=== PATIENT | female | born 2000 | race Caucasian/White ===

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

== ENCOUNTER → 2019-02-01 | Outpatient (CLI) | payer BC, SELFPAY ==
[~2019-02-01] MED LIST: IBUP200T45 PO
--- NOTE | 2019-02-01 19:41 | REP ---
HISTORY: Palpable mass. COMPARISON: No prior ultrasound examinations for comparison. An ultrasound cannot be compared to an MRI. Not only are they of different modalities, but they have markedly different sensitivities and specificities. The prior MRI showed an enhancing mass in the right thigh. All interested parties should review that report and those images if necessary. Today's ultrasound exam shows a mixed echo vascular structure seemingly in the vastus lateralis, difficult to ascertain by ultrasound and having color Doppler imaging showing multiple vascular channels. This was not measured by the technologist and the images provided do not reflect its definitive borders. IMPRESSION: Limited examination with vascular structures as described above. Electronically Signed by Miguel Childs DO 02/02/2019 10:54 A
== END ==
LOC: M RAD 14:34
PROVIDERS: ATTEND Registered Nurse
DX: D18.01 Hemangioma of skin and subcutaneous tissue (principal)

== ENCOUNTER → 2025-04-17 | Outpatient (REF) | payer OTHER, SELFPAY ==
[~2025-04-17] MED LIST changes: -IBUP200T45 PO; +IBUP200T46 PO
[2025-04-17 17:40] LABS: BASO # 0.0 10^3/uL (0.0-0.2); BASO % 0.5 % (0.0-1.0); EOS # 0.2 10^3/uL (0.0-0.5); EOS % 2.8 % (0.0-3.0); LYMPH # 2.1 10^3/uL (1.5-5.0); LYMPH % 23.5 % (24.0-44.0); MONO # 0.6 10^3/uL (0.0-0.8); MONO % 7.0 % (2.0-8.0); NEUTROPHILS # 5.8 10^3/uL (1.5-8.5); NEUTROPHILS % 65.9 % (36.0-66.0); PLATELET COUNT, AUTOMATED 426 10^3/uL (150-450)
[2025-04-17 17:53] LABS: ESTIMATED AVERAGE GLUCOSE 91.0 MG/DL (60-110)
[2025-04-17 18:02] LABS: CREATININE, URINE 85.7 MG/DL; MALB URINE SIEMENS 9.0 MG/L; MAU/CREAT RATIO 10.5 MCG/MG (0.0-30.0)
[2025-04-17 18:09] LABS: ALT/SGPT 26 U/L (7.0-40); AST/SGOT 18 U/L (<34); CALCIUM LEVEL 9.3 MG/DL (8.5-10.1); CARBON DIOXIDE LEVEL 25 MMOL/L (20-31); CHLORIDE LEVEL 109 MMOL/L (98-107); CHOLESTEROL LEVEL 188 MG/DL (<200); CHOLESTEROL RISK RATIO 4.63 (<5); CREATININE FOR GFR 0.85 MG/DL (0.55-1.30); GLOMERULAR FILTRATION RATE > 90.0 (>60); LDL CHOLESTEROL 124.2 MG/DL (<100); NON-HDL-C 147.4 MG/DL; POTASSIUM SERUM 4.5 MMOL/L (3.5-5.1); SODIUM LEVEL 141 MMOL/L (136-145); TRIGLYCERIDES LEVEL 116 MG/DL (<150)
[2025-04-17 18:32] LABS: HIV 1&2 SCREEN NEGATIVE (NEGATIVE)
[2025-04-17 18:40] LABS: HEPATITIS C VIRUS ABY INDEX 0.03 INDEX (<0.8)
== END ==
LOC: M LAB REF 16:20
PROVIDERS: ATTEND Nurse Practitioner Family
DX: I10 Essential (primary) hypertension (principal); E66.812 Obesity, class 2; R06.83 Snoring

== ENCOUNTER → 2025-04-18 | Outpatient (CLI) | payer OTHER | LOC: M EKG 10:23 | PROVIDERS: ATTEND Nurse Practitioner Family | DX: I10 Essential (primary) hypertension (principal); I45.19 Other right bundle-branch block; R94.31 Abnormal electrocardiogram [ECG] [EKG] ==